=== PATIENT | male | born 1955 | race Caucasian/White ===

== ENCOUNTER → 2016-06-30 | Outpatient (CLI) | payer BC | LOC: KOH-I 08:00 | DX: K75.9 Inflammatory liver disease, unspecified (principal); K76.0 Fatty (change of) liver, not elsewhere classified | CPT/HCPCS: 76700 ==

== ENCOUNTER 2022-01-21 15:19 | Emergency (ER) | payer OTHER, MEDICARE ==
[~2022-01-21 15:19] MED LIST: ALPRAZOLAM0.5 MG PO; AMBIEN10 MG PO; ATIVAN0.5 MG PO; CARVEDILOL6.25 MG PO; CATAPRES-TTS 11 EACH TP; CATAPRES0.3 MG PO; CLOTRIMAZOLE-BE45 GM TOP; CRESTOR10 MG PO; DILTIAZEM ER360 MG PO; HYDRALAZINE HCL50 MG PO; KEFLEX CAP 500500 MG PO; LIPO-FLAVONOID1 EACH PO; MEDROL4 MG PO; SPIRONOLACTONE25 MG PO; TESTOSTERON100 MG/ML IM; VALTREX 500 MG500 MG PO; ZOVIRAX 5% CREAM5 GM TOP; [UNRECOGNIZED DRUG - OTHER]
== END 2022-01-21 19:26 | disposition home or self-care (01) ==
LOC: ER1 15:19
DX: S01.01XA Laceration without foreign body of scalp, initial encounter (principal); I12.9 Hypertensive chronic kidney disease with stage 1 through stage 4 chronic kidney disease, or unspecified chronic kidney disease; N18.9 Chronic kidney disease, unspecified; R40.2410 Glasgow coma scale score 13-15, unspecified time; W22.8XXA Striking against or struck by other objects, initial encounter; Y92.410 Unspecified street and highway as the place of occurrence of the external cause
CPT/HCPCS: 12002; 70450; 99283